=== PATIENT | female | born 1940 | race Caucasian/White ===

== ENCOUNTER → 2019-12-14 | Outpatient (CLI) | payer MEDICARE | END | disposition home or self-care (01) | LOC: LABWHC1 07:25 | PROVIDERS: ATTEND Nurse Practitioner | DX: R19.7 Diarrhea, unspecified (principal) | CPT/HCPCS: 36415; 83630; 85652; 86140; 87045; 87046; 87328; 87329 ==

== ENCOUNTER 2019-12-30 10:43 | Day surgery (SDC) | payer MEDICARE ==
[2019-12-28 13:05] VITALS: BMI 31.2
[~2019-12-30 10:43] MED LIST: LACTATED RINGERS 1,000 ML IV SCH
[2019-12-30] MEDS ORDERED: PROPOFOL 10 MG/ML 20 ML VIAL IV ONE (12:14)
--- NOTE | 2019-12-30 12:37 | P.PCN ---
Date of Procedure: 12/30/19 Procedure(s) Performed: BRIEF HISTORY: Patient is a 79-year-old pleasant female scheduled for an elective ileoscopy as a part of evaluation of increased ileostomy output for the last 6 months duration. 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 He was doing well until July of this year. She started having increased ileostomy output and wasn't in the bank about 10 times daily. She was started on Lomotil 1 habits for times daily with no help. She is hence scheduled for ileoscopy today to evaluate further. PROCEDURE PERFORMED: Ileoscopy with biopsy. PREOPERATIVE DIAGNOSIS: Increased ileostomy output. IV sedation per Anesthesia. PROCEDURE: After informed consent was obtained, the patient, was brought into the endoscopy unit. IV sedation was administered by Anesthesia under continuous monitoring. The ileostomy was located in the right lower quadrant area that was exposed. Upon careful examination there was narrowing of the ileostomy noted. Pediatric colonoscopy could not be advanced. Upper Endoscope was used. The scope was advanced to about 30 cm into the distal ileum. There were scattered erosions noted and biopsies were done from this area. 5 cm proximal to the ileostomy there was a 5-6 mm polyp identified and this was also biopsied. The patient tolerated the procedure well. IMPRESSION: 30 cm in the distal ileum was visualized that showed scattered erosions and a 5 mm distal ileal polyp status post biopsy to rule out inflammatory bowel disease RECOMMENDATIONS: Findings of this examination were discussed with the patient as well as her family. She was advised to follow with the biopsy results. In the meantime she was also advised to increase the Lomotil 2 tablets 4 times daily. She will be seen in office in 2 weeks.
[2019-12-30 12:40] VITALS: RESP 16
[2019-12-30 12:51] VITALS: BP 120/84; PULSE 80
== END 2019-12-30 13:43 | disposition home or self-care (01) ==
LOC: ORWHC2ENDO 10:43
PROVIDERS: ATTEND Internal Medicine Gastroenterology
DX: K63.3 Ulcer of intestine (principal); K63.5 Polyp of colon; Z93.2 Ileostomy status; Z88.6 Allergy status to analgesic agent; E78.5 Hyperlipidemia, unspecified; Z79.899 Other long term (current) drug therapy
CPT/HCPCS: 44382; J2704

== ENCOUNTER → 2020-04-24 | Outpatient (CLI) | payer MEDICARE ==
--- NOTE | 2020-04-25 10:58 | US ---
EXAMINATION TYPE: US kidneys/renal and bladder DATE OF EXAM: 04/24/2020 COMPARISON: NONE CLINICAL HISTORY: M54.9 Back pain. Difficult exam due to overlying bowel gas EXAM MEASUREMENTS: Right Kidney: 9.4 x 4.7 x 4.1 cm Left Kidney: 10.7 x 5.2 x 4.7 cm Right Kidney: No hydronephrosis or masses seen Left Kidney: No hydronephrosis. Multiple cystic areas visualized, largest measuring 2.6 x 1.6 x 1.6 c m Bladder: wnl Bilateral Jets seen: no IMPRESSION: 1. Simple appearing left renal cysts
== END | disposition home or self-care (01) ==
LOC: RADUSWWP 16:09
PROVIDERS: ATTEND Internal Medicine Nephrology
DX: N28.1 Cyst of kidney, acquired (principal)
CPT/HCPCS: 76770

== ENCOUNTER → 2022-01-24 | Outpatient (CLI) | payer MEDICARE ==
--- NOTE | 2022-01-24 12:36 | US ---
EXAMINATION TYPE: US venous doppler duplex LE RT DATE OF EXAM: 01/24/2022 12:20 PM COMPARISON: NONE CLINICAL HISTORY: Right lower extremity; M79.661. Pain and swelling. No hx of DVT. Patient does not t chay blood thinners. SIDE PERFORMED: Right TECHNIQUE: The lower extremity deep venous system is examined utilizing real time linear array sonog luis with graded compression, doppler sonography and color-flow sonography. VESSELS IMAGED: Common Femoral Vein Deep Femoral Vein Greater Saphenous Vein * Femoral Vein Popliteal Vein Small Saphenous Vein * Proximal Calf Veins (* superficial vessels) Right Leg: No evidence of DVT in veins imaged. IMPRESSION: No ultrasound evidence for acute DVT in the right lower extremity.
== END | disposition home or self-care (01) ==
LOC: RADUSWWP 11:40
PROVIDERS: ATTEND Family Medicine
DX: M79.661 Pain in right lower leg (principal); M79.89 Other specified soft tissue disorders

== ENCOUNTER 2022-05-08 08:37 | Day surgery (SDC) | payer MEDICARE ==
[2022-05-03 14:36] VITALS: BMI 27.4
[~2022-05-08 08:37] MED LIST changes: +MOXIFLOXACIN HCL 0.5% DROPS 3 ML BTL OP PRN; +TETRACAINE 0.5% OPHTH (PF) DROPS 4 ML BTL OP PRN; +TIMOLOL 0.5% OPHTH DROPS 5 ML BTL OP PRN
[2022-05-08] MEDS: CYCLOPENTOLATE 1% OPHTH SOLN 2 ML BTL OP PRN ×3 (09:34→10:00)
[2022-05-08 09:38] VITALS: TEMP 97.9
[2022-05-08] MEDS: PHENYLEPHRINE 2.5% OPHTH DRP 2ML OP PRN ×3 (09:42→10:04)
[2022-05-08] MEDS ORDERED: hydrALAZINE HCL 20 MG/ML 1 ML VIAL IV ONE (09:57)
[2022-05-08] MEDS ORDERED: LIDOCAINE 1% (10MG/ML) FOR IV START INTRADERMA ONE (10:00)
[2022-05-08] MEDS ORDERED: hydrALAZINE HCL 20 MG/ML 1 ML VIAL ONE (10:16)
[2022-05-08] MEDS ORDERED: fentaNYL (PF) 50 MCG/ML 2 ML AMP ONE (10:16)
[2022-05-08] MEDS ORDERED: MIDAZOLAM 2 MG/2 ML VIAL ONE (10:16)
[2022-05-08] MEDS ORDERED: HYALURONATE SODIUM INTRAOCULAR 1 EACH SYRINGE (12MG/ML) INTRAOCULA ONE (10:35)
[2022-05-08] MEDS ORDERED: BALANCED SALT IRRIG SOLN COMB2 15 ML IRRIG.SOLN INTRAOCULA ONE (10:36)
[2022-05-08] MEDS ORDERED: EPINEPHrine (PF) 0.3 ML in BALANCED SALT IRRIG SOLN COMB2 500 ML IRRIGATION ONE (10:36)
[2022-05-08] MEDS ORDERED: LIDOCAINE 1% (PF) 10MG/ML VIAL SQ ONE (10:36)
--- NOTE | 2022-05-08 10:57 | P.OP ---
Date of Procedure: 05/08/22 Preoperative Diagnosis: NS & CS & PSC Postoperative Diagnosis: same Procedure(s) Performed: PIOL, OD Implants: [id number] 9.0 x 3.50 Anesthesia: MAC Surgeon: Casey Lockhart Pathology: none sent Condition: stable Disposition: same day Indications for Procedure: blurry vision Operative Findings: no complications
[2022-05-08 11:06] VITALS: PULSE 75; RESP 16
[2022-05-08 11:26] VITALS: BP 154/79
--- NOTE | 2022-05-09 01:20 | OP ---
OPERATIVE REPORT PREOPERATIVE DIAGNOSES: Nuclear sclerosis, cortical sclerosis, posterior subcapsular cataract and regular astigmatism. POSTOPERATIVE DIAGNOSES: Nuclear sclerosis, cortical sclerosis, posterior subcapsular cataract and regular astigmatism. OPERATION:: Phacoemulsification of cataract and intraocular lens implant of the right eye. ESTIMATED BLOOD LOSS:: None. SPECIMEN TAKEN:: None. ANESTHESIA: Topical. NARRATIVE: After obtaining the appropriate consent, the patient was brought to the operating room. There, she was asked to sit upright and the axes of 0 and 180 degrees were identified and marked with a gentian vikram marker. She was then laid in the proper supine position under cardiac monitoring and prepped and draped in the usual sterile manner. She was approached from her right temporal side and using previously acquired corneal topography information, the axis of 12 degrees was identified and marked with a [employer] axis marker. At the 11 o'clock position, an MVR blade was used to create a paracentesis port. Through this opening 1% Xylocaine MPF 50:50 mix with balanced salt solution was injected into the anterior chamber. This was followed by stabilization of the anterior chamber with Amvisc. At the 9 o'clock position, a 2.5 mm keratome was used to create a self-sealing corneal flap incision. Through this opening, a cystotome was introduced to begin a continuous tear capsulorhexis which was completed using Utrata forceps. Hydrodissection and hydrodelineation of the lens were accomplished with balanced salt solution. Phacoemulsification of the lens utilizing phaco chop was accomplished in 18.24 seconds at 13% power. Additional Xylocaine MPF was instilled into the anterior chamber. This was followed by removal of the remaining cortical material under irrigation and aspiration as well as careful polishing of the posterior capsule in the capsule vacuum mode. Additional Amvisc was then used to stabilize the capsular bag and a [employer] MX60ET 9 diopter x 3.5 diopter posterior chamber intraocular lens was then inserted in the capsular bag without difficulty. The remaining viscoelastic was removed from in and around the intraocular lens with the irrigation and aspiration, and the lens was oriented using the tip of the IA instrument to the previously identified 12-degree jericho. The lens was gently tamponade against the posterior capsule and the eye brought to normal intraocular pressure through the paracentesis port with balanced salt solution. All wounds were confirmed watertight and Tisseel sealant was used to maintain the watertight integrity. The patient then received 2 drops of 0.5% timolol followed by 2 drops of 0.5% moxifloxacin. She was then lightly patched and shielded in the usual manner. There were no complications from the procedure. She tolerated the procedure well and was returned to outpatient recovery in good condition. MMCRESCENCIO / RAYSAN: [id number] /
== END 2022-05-08 11:40 | disposition home or self-care (01) ==
LOC: OR 08:37
PROVIDERS: ATTEND Ophthalmology
DX: H25.11 Age-related nuclear cataract, right eye (principal); H25.011 Cortical age-related cataract, right eye; H25.041 Posterior subcapsular polar age-related cataract, right eye; H52.221 Regular astigmatism, right eye; E11.36 Type 2 diabetes mellitus with diabetic cataract; Z93.2 Ileostomy status; Z88.6 Allergy status to analgesic agent; E78.5 Hyperlipidemia, unspecified
CPT/HCPCS: 66982; V2787; C1780; C1762; J2250; J0360; J0171; J3010; J2001

== ENCOUNTER 2022-06-05 08:29 | Day surgery (SDC) | payer MEDICARE ==
[2022-05-31 14:16] VITALS: BMI 27.4
[~2022-06-05 08:29] MED LIST changes: -LACTATED RINGERS 1,000 ML IV SCH
[2022-06-05] MEDS ORDERED: LACTATED RINGERS 1,000 ML IV SCH (09:18)
[2022-06-05] MEDS ORDERED: fentaNYL (PF) 50 MCG/ML 2 ML AMP IV PRN (09:18)
[2022-06-05] MEDS ORDERED: ONDANSETRON 4 MG/2 ML VIAL IVP PRN (09:18)
[2022-06-05] MEDS ORDERED: LIDOCAINE 1% (10MG/ML) FOR IV START INTRADERMA PRN (09:18)
[2022-06-05] MEDS: CYCLOPENTOLATE 1% OPHTH SOLN 2 ML BTL OP PRN ×3 (09:38→09:50)
[2022-06-05] MEDS: PHENYLEPHRINE 2.5% OPHTH DRP 2ML OP PRN ×3 (09:41→09:53)
[2022-06-05 09:43] VITALS: TEMP 97.3
[2022-06-05] MEDS ORDERED: fentaNYL (PF) 50 MCG/ML 2 ML AMP ONE (10:29)
[2022-06-05] MEDS ORDERED: MIDAZOLAM 2 MG/2 ML VIAL ONE (10:29)
[2022-06-05] MEDS ORDERED: EPINEPHrine (PF) 0.3 ML in BALANCED SALT IRRIG SOLN COMB2 500 ML IRRIGATION ONE (10:31)
[2022-06-05] MEDS ORDERED: BALANCED SALT IRRIG SOLN COMB2 15 ML IRRIG.SOLN IRRIGATION ONE (10:34)
[2022-06-05] MEDS ORDERED: HYALURONATE SODIUM INTRAOCULAR 1 EACH SYRINGE (12MG/ML) INTRAOCULA ONE (10:34)
[2022-06-05] MEDS ORDERED: LIDOCAINE 1% (PF) 10MG/ML VIAL MISCELLANE ONE (10:35)
--- NOTE | 2022-06-05 11:02 | P.OP ---
Date of Procedure: 06/05/22 Preoperative Diagnosis: NS & CS Postoperative Diagnosis: same Procedure(s) Performed: PIOL< OS Implants: MX60ET 9.0x1.25 Anesthesia: MAC Surgeon: Casey Lockhart Pathology: none sent Condition: stable Disposition: same day Indications for Procedure: blurry vision Operative Findings: no complications
[2022-06-05 11:29] VITALS: BP 156/83; PULSE 74; RESP 15
--- NOTE | 2022-06-05 20:26 | OP ---
OPERATIVE REPORT PROCEDURES PERFORMED: Phacoemulsification of cataract and intraocular lens implant to the left eye. PREOPERATIVE DIAGNOSES: Nuclear sclerosis, cortical sclerosis, and regular astigmatism. POSTOPERATIVE DIAGNOSES: Nuclear sclerosis, cortical sclerosis, and regular astigmatism. ANESTHESIA: Topical. ESTIMATED BLOOD LOSS: None. SPECIMEN TAKEN: None. NARRATIVE: After obtaining the appropriate consent, the patient was brought to the operating room. She was asked to sit upright and the axes of 0 and 180 degrees were identified and marked with a gentian vikram marker. She was then placed in the proper supine position under cardiac monitoring and prepped and draped in usual sterile manner. Using a [employer] axis marker set to an axis of 164 degrees, a jericho on the patient's eye was defined with the device at that axis. At the 5 o'clock position, an MVR blade was used to create a paracentesis port. Through this opening, 1% Xylocaine MPF 50:50 mix with balanced salt solution was injected into the anterior chamber. This was followed by stabilization of the anterior chamber with Amvisc. At the 3 o'clock position, a 2.5 mm keratome was used to create a self-sealing corneal flap incision. Through this opening, a cystotome was introduced to begin a continuous tear capsulorrhexis which was then completed using the Utrata forceps. Hydrodissection and hydrodelineation of the lens were accomplished with balanced salt solution. Phacoemulsification of the lens utilizing phaco chop was accomplished at 12.71 seconds at 14% power. Additional Xylocaine MPF was instilled into the anterior chamber. This was followed by removal of the remaining cortical material under irrigation and aspiration as well as careful polishing of the posterior capsule in the capsule vacuum mode. Additional Amvisc was then used to stabilize the capsular bag and a Bausch [employer] Lomb MX60E 9.0 diopter x 1.25 diopter posterior chamber intraocular lens was then inserted into the capsular bag without difficulty. The remaining viscoelastic was then removed from in and around the intraocular lens as well as the anterior chamber. Final alignment was made with the previously made corneal jericho at 164 degrees and the lens was tamponaded against the posterior capsule of the lens bag. The irrigation aspiration instrument was carefully removed from the anterior chamber and the eye was brought to slightly higher than normal intra-ocular pressure, ensuring that the wound stayed sealed. Further assurance of no Jones was accomplished with using Tisseel to seal the temporal and paracenteses wounds. Once the Tisseel had cured, 2 drops of 0.5% timolol followed by 2 drops of moxifloxacin was applied to the eye. The eye was then patched and shielded in the usual manner. There were no complications from the procedure and she tolerated the procedure well and was returned to outpatient recovery in good condition. MMCRESCENCIO / TORY: [id number] /
== END 2022-06-05 11:55 | disposition home or self-care (01) ==
LOC: OR 08:29
PROVIDERS: ATTEND Ophthalmology
DX: H25.812 Combined forms of age-related cataract, left eye (principal); H52.222 Regular astigmatism, left eye; E78.00 Pure hypercholesterolemia, unspecified; I10 Essential (primary) hypertension; Z87.19 Personal history of other diseases of the digestive system; Z88.6 Allergy status to analgesic agent; H35.89 Other specified retinal disorders; H16.223 Keratoconjunctivitis sicca, not specified as Sjogren's, bilateral; H00.023 Hordeolum internum right eye, unspecified eyelid; H44.23 Degenerative myopia, bilateral; H00.026 Hordeolum internum left eye, unspecified eyelid; H50.00 Unspecified esotropia; H55.02 Latent nystagmus; H52.223 Regular astigmatism, bilateral; H52.4 Presbyopia; Z96.1 Presence of intraocular lens; E78.5 Hyperlipidemia, unspecified; R26.89 Other abnormalities of gait and mobility; Z79.899 Other long term (current) drug therapy
CPT/HCPCS: 66984; V2632; C1762; J2250; J0171; J3010; J2001